=== PATIENT | female | born 1995 | race Caucasian/White ===

== ENCOUNTER → 2017-06-13 | Outpatient (CLI) | payer BC, MEDICAID | LOC: COL.LAB 13:45 | DX: N91.2 Amenorrhea, unspecified (principal) ==

== ENCOUNTER → 2017-06-16 | Outpatient (CLI) | payer BC, MEDICAID | LOC: COL.LAB 17:57 → ZCOL.LAB 17:57 | DX: N91.2 Amenorrhea, unspecified (principal) ==

== ENCOUNTER → 2018-06-23 | Outpatient (CLI) | payer BC, MEDICAID | LOC: COL.LAB 14:22 | DX: N91.2 Amenorrhea, unspecified (principal) ==

== ENCOUNTER 2020-11-20 18:19 | Outpatient (CLI) | payer MEDICAID ==
[~2020-11-20] VITALS: Ht 157.5 cm; Wt 79.5 kg
[2020-11-20 18:30] VITALS: BP 125/86; PULSE 82; TEMP 98.4
--- NOTE | 2020-11-20 18:30 | NUR ---
1830 G3L1 36 WEEK GEST REPEAT C/SCET TO LR4 WITH C/O DECREASED MOVEMENT LAST FEW DAYS. WAS SENT FROM [facility] OFFICE FOR A NON REACTIVE NST. EFM. BABY MOVING IMMEDIATELY EFM ON WITH ACCEL FROM 120 TO 160 X 20 SECONDS NOTED. ADM ASSESSMENT DONE.
[2020-11-20] MEDS ORDERED: PRENATA1 CTB PO (18:49)
[2020-11-20] MEDS ORDERED: ASPIRIN 81M81 MG/TA2 PO (18:50)
--- NOTE | 2020-11-20 19:15 | NUR ---
191 FHT BASELINE 115-120 WITH ACCELS TO 140'S NOTED WITH MOVEMENT. PT AWARE WHEN BABY MOVING. GOOD VARIABILITY NOTED. 1919 DR HOUSER NOTIFIED AND REPORT GIVEN. DISMISSAL INSTRUCTION GIVEN 1924 HOME WITH INSTRUCTIONS.
== END 2020-11-20 19:25 | disposition home or self-care (01) ==
LOC: LDRO 18:19
DX: O36.8130 Decreased fetal movements, third trimester, not applicable or unspecified (principal); Z3A.35 35 weeks gestation of pregnancy

== ENCOUNTER 2020-11-28 05:23 | Inpatient (IN) | payer OTHER, MEDICAID ==
[~2020-11-28] VITALS: Ht 157.5 cm; Wt 77.7 kg
[2020-11-28] VITALS (16 sets, daily range): BP systolic 98–140; BP diastolic 57–96; PULSE 67–101; TEMP 97.6–98.7
[~2020-11-28 05:23] MED LIST: ASPIRIN 81M81 MG/TA2 PO; PRENATA1 CTB PO
--- NOTE | 2020-11-28 05:40 | NUR ---
0540 G3L1 37.5 WEEK GEST REPEAT C/SECT TO LR5 WITH C/O CONTRACTIONS. EFM ON. VERY UNCOMFORTABLE WITH CONTRACTIONS. SVE /-2. BOW INTACT. 0542 DR CORRINA NOTIFIED. WIIL COME IN FOR C/SECTION. [employer] SOFTWARE ENGINEER NOTIFIED. 0550 IV FLUIDS STARTED AND PERMITS SIGNED.
[2020-11-28 05:58] LABS: BASO # 0.1 (0.0-0.2); BASO % 0.7 % (0.0-2.0); EOS # 0.2 (0.0-0.7); GRAN # 5.7 (1.4-6.5); GRAN % 63.4 % (42.2-75.2); HEMATOCRIT 31.5 % (37.0-47.0); HEMOGLOBIN 10.4 g/dl (12.5-16.0); LYMPH # 2.3 (1.2-3.4); LYMPH % 24.9 % (20.0-51.0); MEAN CELL VOLUME 84 fl (80.0-100.0); MEAN CORPUSCULAR HEMOGLOBIN 28 pg (27.0-31.0); MEAN CORPUSCULAR HGB CONC 33 g/dl (33.0-37.0); MEAN PLATELET VOLUME 10.3 fl (7.4-10.4); MONO # 0.8 (0.1-0.6); MONO % 8.4 % (1.7-9.3); PLATELET COUNT 318 K/mm3 (130-400); RED BLOOD COUNT 3.75 M/mm3 (4.10-5.30); REDCELL DISTRIBUTION WIDTH-CV 14.1 % (11.5-14.5)
--- NOTE | 2020-11-28 06:00 | NUR ---
0600 ROLES HERE. TIFFANIE ARCE LIP. DISCUSSED WITH PT. WILL ATTMEPT A . 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
--- NOTE | 2020-11-28 06:10 | NUR ---
0610 EPID DOSED PER ANETHSIA. SEE ANETHESIA RECORD FOR MORE INFO. PICKING UP MATERNAL PULSE WHILE SITTING ON SIDE OF BED FOR EPIDURAL.
--- NOTE | 2020-11-28 06:15 | NUR ---
Bedside report received from Jakob PATEL. Patient just received epidural and repositioned at this time. Plan of care and safety precautions discussed. Roles at nurses station reveiwing FHR strip. FHR baseline 110-115bpm. 0645: Roles at bedside and discussing plan of car. 0650: SVE per physician 9- and AROM at this time with clear fluid noted. FHR decreasing to 65bpm and patient turned left lateral and then right lateral. FHR returns to baseline of 100-105bpm. 0656: FHR tracing deep variable deceleration to 60 bpm with spontaneous return of baseline. 0702: FHR decreasing to -
--- NOTE | 2020-11-28 07:10 | NUR ---
0710: Pushing instructions gone over 0711: Patient begins to push with contractions. FHR decreasing to 60bpm Patient continues to push FHR tracing at 60bpm, Dr. Gutierrez discusses the need for vacuum assisted delivery. Patient agrees. 0714: Mediolateral episiotomy cut at this time. Vacuum applied. 0715: Patient pushes three times with each contraction and vacuum traction appled with each push. 0717: Vacuum assisted vaginal delivery of viable male infant- head followed by body. bulb syringed and to patients abdomen. Fawad Montanez RN assumes care of . Cord clamped by physician and cut by patients mother. Cord blood and cord gases obtained. 0721: Spontaneous delivery of placenta and pitocin started at this time at 333mu/hr per protocol. Fundal massage done/firm/bleeding WNL. Patient straight catherized at this time. Dr. Gutierrez repairs laceration Patient reposition and ice pack to perineum. Plan of care discussed.
[2020-11-29 03:15] VITALS: BP 122/84; PULSE 64; TEMP 98.1
[2020-11-29 07:15] VITALS: BP 104/57; PULSE 58; TEMP 97.6
[2020-11-29] MEDS ORDERED: IBU600 MG PO (08:45)
--- NOTE | 2020-11-29 09:10 | NUR ---
Initial visit; Patient thanked Science Consultant for offering congratulations and God's blessings for the of her son. Science Consultant thanked mom for choosing [facility].
[2020-11-29 17:24] VITALS: BP 130/85; PULSE 85; TEMP 98.6
[2020-11-29 22:05] VITALS: BP 111/60; PULSE 91; TEMP 98.1
[2020-11-30 07:12] VITALS: BP 134/86; PULSE 75; TEMP 97.6
== END 2020-11-30 10:50 | disposition home or self-care (01) | DRG 807 ==
LOC: LDRO 05:23 → OB 05:47 → LDR 05:47 → OB 09:45
PROVIDERS: ADMIT Obstetrics & Gynecology
PROC: 10D07Z6 Extraction of Products of Conception, Vacuum, Via Natural or Artificial Opening (ICD-10-PCS; principal; 2020-11-28)
PROC: 10907ZC Drainage of Amniotic Fluid, Therapeutic from Products of Conception, Via Natural or Artificial Opening (ICD-10-PCS; 2020-11-28)
DX: O99.02 Anemia complicating childbirth (principal); Z37.0 Single live birth; O34.211 Maternal care for low transverse scar from previous cesarean delivery; O76 Abnormality in fetal heart rate and rhythm complicating labor and delivery; D50.0 Iron deficiency anemia secondary to blood loss (chronic); Z3A.37 37 weeks gestation of pregnancy
CPT/HCPCS: J2540; J2590; J2795; J7120